=== PATIENT | female | born 1955 | race American Indian/Alaskan Native ===

== ENCOUNTER 2016-10-16 06:34 | Day surgery (SDC) | payer OTHER ==
[2016-10-16 07:35] LABS: Eosinophils % (Auto) 2.5 % (0.0-4.3); Hematocrit 36.7 % (30.3-42.9); Hemoglobin 12.5 gm/dl (10.1-14.3); Mean Corpuscular HGB Conc 34 % (30-34); Mean Corpuscular Hemoglobin 30 pg (28-32); Mean Corpuscular Volume 89 fl (79-97); Platelet Count 199 K/mm3 (140-440); Red Blood Count 4.14 M/mm3 (3.65-5.03); Red Cell Distribution Width 13.1 % (13.2-15.2); White Blood Count 3.8 K/mm3 (4.5-11.0)
[2016-10-16 07:45] LABS: INR 0.84 (0.87-1.13)
[2016-10-16 07:55] LABS: Anion Gap 14 mmol/L; Blood Urea Nitrogen 10 mg/dL (7-17); Calcium 8.2 mg/dL (8.4-10.2); Carbon Dioxide 27 mmol/L (22-30); Chloride 105.7 mmol/L (98-107); Glucose 91 mg/dL (65-100); Potassium 3.6 mmol/L (3.6-5.0); Sodium 143 mmol/L (137-145)
[2016-10-16] MEDS ORDERED: NACL 0.9% 500 ML 500 ML IV SCH (08:00)
[2016-10-16] MEDS ORDERED: ECOTRIN PO ONE (09:00)
[2016-10-16] MEDS ORDERED: XYLOCAINE 1% 20 mL ONE (10:12)
[2016-10-16] MEDS ORDERED: HEPARIN/NS 5000 UNIT/500ML(CATH LAB) 1,000 ML IR ONE (10:12)
[2016-10-16] MEDS ORDERED: SUBLIMAZE ONE (10:12)
[2016-10-16] MEDS ORDERED: VERSED ONE (10:12)
--- NOTE | 2016-10-16 11:30 | Discharge Summary ---
Short Stay Discharge Plan Activity: advance as tolerated Weight Bearing Status: Partial Weight Bearing Diet: low fat, low cholesterol, low salt Wound: keep clean and dry Special Instructions: no heavy lifting (3 days) Follow up with: HANH VELASQUEZ JR, MD [Primary Care Provider] - 7 Days BREEZY IBRAHIM MD [Staff Physician] - 7 Days
[2016-10-16] MEDS ORDERED: NACL 0.9% 1000 ML 1,000 ML IV SCH (12:00)
--- NOTE | 2016-10-16 14:14 | Cardiac Catherization Report ---
CARDIAC CATHETERIZATION REASON FOR PROCEDURE: Chest pain. PROCEDURE: The patient was prepped and draped in a sterile fashion after informed consent. Right femoral artery was entered using the Seldinger technique followed by placement of a 6-Malay sheath. Selective left and right coronary angiography was performed using #4 right and left Isha catheters. A pigtail catheter was used for left ventricle angiography. The catheters were removed, sheath removed, and hemostasis achieved using an Angio-Seal device. The patient was returned to the post-procedure unit in stable condition. There were no complications. FINDINGS: HEMODYNAMICS: Left ventricle end-diastolic pressure was 24, following coronary angiography. Ascending aortic pressure was 143/78. There was no significant pressure gradient on pullback across the aortic valve. CORONARY ANGIOGRAPHY: The left main coronary artery was angiographically normal. The left anterior descending artery and its diagonal branches contained mild luminal irregularities. There were mild luminal irregularities of the proximal and mid circumflex artery. The right coronary artery was a relatively small caliber, but dominant vessel. This vessel was angiographically normal. There was normal left ventricular systolic function, ejection fraction 60%. CONCLUSION: 1. Mild luminal irregularities as above, essentially angiographically normal coronary arteries. 2. Normal left ventricular systolic function, ejection fraction 60%. RECOMMENDATION: Risk factor modification and medical therapy. JOB# [id number] FRED/NTS
[2016-10-16 15:25] VITALS: BP 137/73
== END 2016-10-16 15:45 | disposition home or self-care (01) ==
LOC: CATHLABREC 06:34
PROVIDERS: ATTEND Internal Medicine Cardiovascular Disease
DX: R07.9 Chest pain, unspecified (principal); I10 Essential (primary) hypertension; K21.9 Gastro-esophageal reflux disease without esophagitis; Z79.82 Long term (current) use of aspirin; Z79.899 Other long term (current) drug therapy; Z88.5 Allergy status to narcotic agent; Z98.890 Other specified postprocedural states; Z82.49 Family history of ischemic heart disease and other diseases of the circulatory system
CPT/HCPCS: 36415; 80048; 85025; 85610; 93005; 93010; 93458; C1760; C1894; J1644; J2250; J3010; J7040; Q9967

== ENCOUNTER 2021-06-16 16:40 | Emergency (ER) | payer MEDICARE, OTHER ==
[2021-06-16] MEDS ORDERED: ASPIRIN 325 MG TAB PO ONE (17:01)
--- NOTE | 2021-06-16 17:06 | Emergency Department Report ---
ED Chest Pain HPI - General Stated Complaint: CHEST PAIN Time Seen by Provider: 06/16/21 16:50 Source: patient Mode of arrival: Stretcher Limitations: No Limitations - History of Present Illness Initial Comments: 66-year-old non-smoker with a past medical history of hypertension presents complaining of sudden onset of chest pressure while at rest 1 hour prior to arrival. Pain was a constant pressure that is moderate in intensity without aggravating or alleviating factors. Patient took her reflux medication during episode. She does not take nitroglycerin or aspirin at this time. Patient denies associated symptoms including pain radiation, nausea, vomiting, or diaphoresis. She is currently pain-free. She denies calf tenderness, leg edema, pleuritic chest pain. As per medical record review patient a cardiac cath here in October 2016 showed mild luminal irregularities with essentially normal coronary arteries. LV systolic function ejection fraction 60%. Patient states she has not had a cardiac cath since However she is scheduled for outpatient cardiac procedures in 2 weeks for reevaluation because she has not had a heart work-up in a while. She is unsure which cardiac tests she is scheduled for. Patient's PMD is Dr. 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 [facility] Cardiac risk factors include hypertension, mother had a pacemaker but no history is NV or stent placement - Related Data Home Medications Medication Instructions Recorded Confirmed Last Taken Aspirin EC [Halfprin EC] 81 mg PO QDAY 10/16/16 10/16/16 10/15/16 Biotin [Biotin 1,000 chew] 1,000 mcg PO DAILY 10/16/16 10/16/16 10/15/16 Bisoprolol/Hctz [Ziac 5-6.25] 1 each PO DAILY 10/16/16 10/16/16 10/15/16 Bupropion HCl [Wellbutrin XL] 300 mg PO QAM 10/16/16 10/16/16 10/15/16 Diclofenac Sodium 75 mg PO BID PRN 10/16/16 10/16/16 10/15/16 ISOSORBIDE MONOnitrate [Imdur ER] 30 mg PO DAILY 10/16/16 10/16/16 10/15/16 Metoprolol Xl [Metoprolol 25 mg PO QDAY 10/16/16 10/16/16 10/15/16 SUCCINATE ER TAB] Pantoprazole [Protonix TAB] 40 mg PO QDAY 10/16/16 10/16/16 10/15/16 hydrOXYzine HCL [Hydroxyzine HCl] 25 mg PO BID PRN 10/16/16 10/16/16 10/15/16 Allergies Allergy/AdvReac Type Severity Reaction Status Date / Time propoxyphene HCl AdvReac Nausea Verified 06/16/21 17:08 [From [facility]von] Heart Score - HEART Score History: Slightly suspicious EKG: Normal Age: 45-65 Risk factors: 1-2 risk factors Troponin: < normal limit HEART Score: 2 - EKG Read Time Time EKG Completed: 16:46 EKG Read Time: 16:49 ED Review of Systems ROS: Stated complaint: CHEST PAIN Other details as noted in HPI Comment: All other systems reviewed and negative ED Past Medical Hx - Past Medical History Hx Hypertension: Yes Hx GERD: Yes Hx Asthma: Yes - Social History Smoking Status: Never Smoker - Medications Home Medications: Home Medications Medication Instructions Recorded Confirmed Last Taken Type Aspirin EC [Halfprin EC] 81 mg PO QDAY 10/16/16 10/16/16 10/15/16 History Biotin [Biotin 1,000 chew] 1,000 mcg PO DAILY 10/16/16 10/16/16 10/15/16 History Bisoprolol/Hctz [Ziac 5-6.25] 1 each PO DAILY 10/16/16 10/16/16 10/15/16 History Bupropion HCl [Wellbutrin XL] 300 mg PO QAM 10/16/16 10/16/16 10/15/16 History Diclofenac Sodium 75 mg PO BID PRN 10/16/16 10/16/16 10/15/16 History ISOSORBIDE MONOnitrate [Imdur ER] 30 mg PO DAILY 10/16/16 10/16/16 10/15/16 His tory Metoprolol Xl [Metoprolol 25 mg PO QDAY 10/16/16 10/16/16 10/15/16 History SUCCINATE ER TAB] Pantoprazole [Protonix TAB] 40 mg PO QDAY 10/16/16 10/16/16 10/15/16 History hydrOXYzine HCL [Hydroxyzine HCl] 25 mg PO BID PRN 10/16/16 10/16/16 10/15/16 History ED Physical Exam - Other Other exam information: General: No acute distress Head: Atraumatic Eyes: normal appearance Neck: Normal appearance, no midline tenderness Chest: Clear to auscultation bilaterally, chest wall nontender CV: Regular rate and rhythm Abdomen: Soft, normal bowel sounds, nontender, nondistended, no rebound or guarding Back: Normal inspection Extremity: Normal inspection, full range of motion, no calf tenderness or leg edema Neuro: Alert O x 3, no facial asymmetry, speech clear, no gross motor sensory deficit Psych: Appropriate behavior ED Course Vital Signs 06/16/21 06/16/21 06/16/21 17:01 17:05 17:45 Temperature 98.6 F Pulse Rate 63 61 Blood Pressure 164/85 141/78 [Left] O2 Sat by Pulse 99 98 98 Oximetry 06/16/21 19:02 Temperature Pulse Rate 67 Blood Pressure 131/90 [Left] O2 Sat by Pulse 99 Oximetry - Consultations Consultation #1: 06/16/21 19:[address] Campo on-call furnace combustion tester for [facility] heart. He was able to look at patient's medical record and states that she had a negative stress test May 2019 and is scheduled for a repeat stress test July 13 this year. Since patient has been pain-free, negative cardiac enzyme, and unchanged EKG she may be discharged if her second enzyme is negative. Patient will be updated TAMMY score - Tammy Score Age > 65: (0) No Aspirin use within the Past 7 Days: (0) No 3 or more CAD Risk Factors: (0) No 2 or more Angina events in past 24 hrs: (0) No Known CAD with more than 50% Stenosis: (0) No Elevated Cardiac Markers: (0) No ST Deviation Greater than 0.5mm: (0) No TAMMY Score: 0 ED Medical Decision Making - Lab Data Result diagrams: 06/16/21 17:44 06/16/21 17:44 Lab Results 06/16/21 06/16/21 06/16/21 Range/Units 17:44 17:44 17:44 WBC 4.6 (4.5-11.0) K/mm3 RBC 4.45 (3.65-5.03) M/mm3 Hgb 13.3 (10.1-14.3) gm/dl Hct 39.6 (30.3-42.9) % MCV 89 (79-97) fl MCH 30 (28-32) pg MCHC 34 (30-34) % RDW 14.0 (13.2-15.2) % Plt Count 224 (140-440) K/mm3 Lymph % (Auto) 42.1 H (13.4-35.0) % [place] % (Auto) 8.0 H (0.0-7.3) % Eos % (Auto) 2.4 (0.0-4.3) % Baso % (Auto) 0.7 (0.0-1.8) % Lymph # (Auto) 1.9 (1.2-5.4) K/mm3 [place] # (Auto) 0.4 (0.0-0.8) K/mm3 Eos # (Auto) 0.1 (0.0-0.4) K/mm3 Baso # (Auto) 0.0 (0.0-0.1) K/mm3 Seg Neutrophils % 46.8 (40.0-70.0) % Seg Neutrophils # 2.1 (1.8-7.7) K/mm3 PT 12.6 (12.2-14.9) Sec. INR 0.86 L (0.87-1.13) APTT 27.7 (24.2-36.6) Sec. Sodium 139 (137-145) mmol/L Potassium 4.0 (3.6-5.0) mmol/L Chloride 103.8 (98-107) mmol/L Carbon Dioxide 25 (22-30) mmol/L Anion Gap 14 mmol/L BUN 14 (7-17) mg/dL Creatinine 0.8 (0.6-1.2) mg/dL Estimated GFR > 60 ml/min BUN/Creatinine Ratio 18 % Glucose 96 (65-100) mg/dL Calcium 8.8 (8.4-10.2) mg/dL Total Bilirubin 0.20 (0.1-1.2) mg/dL AST 24 (5-40) units/L ALT 30 (7-56) units/L Alkaline Phosphatase 79 (35-129) units/L Troponin T < 0.010 (0.00-0.029) ng/mL Total Protein 7.0 (6.3-8.2) g/dL Albumin 4.4 (3.9-5) g/dL Albumin/Globulin Ratio 1.7 % 06/16/21 Range/Units 19:49 WBC (4.5-11.0) K/mm3 RBC (3.65-5.03) M/mm3 Hgb (10.1-14.3) gm/dl Hct (30.3-42.9) % MCV (79-97) fl MCH (28-32) pg MCHC (30-34) % RDW (13.2-15.2) % Plt Count (140-440) K/mm3 Lymph % (Auto) (13.4-35.0) % [place] % (Auto) (0.0-7.3) % Eos % (Auto) (0.0-4.3) % Baso % (Auto) (0.0-1.8) % Lymph # (Auto) (1.2-5.4) K/mm3 [place] # (Auto) (0.0-0.8) K/mm3 Eos # (Auto) (0.0-0.4) K/mm3 Baso # (Auto) (0.0-0.1) K/mm3 Seg Neutrophils % (40.0-70.0) % Seg Neutrophils # (1.8-7.7) K/mm3 PT (12.2-14.9) Sec. INR (0.87-1.13) APTT (24.2-36.6) Sec. Sodium (137-145) mmol/L Potassium (3.6-5.0) mmol/L Chloride (98-107) mmol/L Carbon Dioxide (22-30) mmol/L Anion Gap mmol/L BUN (7-17) mg/dL Creatinine (0.6-1.2) mg/dL Estimated GFR ml/min BUN/Creatinine Ratio % Glucose (65-100) mg/dL Calcium (8.4-10.2) mg/dL Total Bilirubin (0.1-1.2) mg/dL AST (5-40) units/L ALT (7-56) units/L Alkaline Phosphatase (35-129) units/L Troponin T < 0.010 (0.00-0.029) ng/mL Total Protein (6.3-8.2) g/dL Albumin (3.9-5) g/dL Albumin/Globulin Ratio % - EKG Data -: EKG Interpreted by Me (Possible left atrial enlargement) EKG shows normal: sinus rhythm, ST-T waves (Non-STEMI) Rate: normal - EKG Data When compared to previous EKG there are: no significant change (Compared to 2017 EKG) - Radiology Data Radiology results: report reviewed CHEST 1 VIEW INDICATION: Chest Pain. COMPARISON: 06/09/2010 FINDINGS: SUPPORT DEVICES: None. HEART: Within normal limits. LUNGS/PLEURA: No acute air space or interstitial disease. ADDITIONAL FINDINGS: None. IMPRESSION: 1. No acute findings. Critical Care Time: No Critical care attestation.: If time is entered above; I have spent that time in minutes in the direct care of this critically ill patient, excluding procedure time. ED Disposition Clinical Impression: Atypical chest pain, History of gastroesophageal reflux (GERD) Disposition: HOME / SELF CARE / HOMELESS Is pt being admited?: No Does the pt Need Aspirin: No Condition: Stable Instructions: Nonspecific Chest Pain, Adult Additional Instructions: Continue your medications as prescribed. Follow-up with your primary care doctor for reevaluation the next 3 to 5 days. Follow-up with your furnace combustion tester as scheduled. Follow-up with GI doctor provided with a GI doctor of your choice for further evaluation of your reflux symptoms. Return if symptoms worsen as indicated by your discharge instructions. Referrals: [facility] [Provider Group] - 7-10 days HANH VU JR, MD [Staff Physician] - 3-5 Days BONNIE THOMSON MD [Staff Physician] - 7-10 days (GI doctor) Time of Disposition: 20:35
--- NOTE | 2021-06-16 17:20 | XRay Report ---
CHEST 1 VIEW INDICATION: Chest Pain. COMPARISON: 06/09/2010 FINDINGS: SUPPORT DEVICES: None. HEART: Within normal limits. LUNGS/PLEURA: No acute air space or interstitial disease. ADDITIONAL FINDINGS: None. IMPRESSION: 1. No acute findings. Signer Name: Yaya Vela MD Signed: 06/16/2021 5:15 PM Workstation Name: [id number]
[2021-06-16 17:55] LABS: Basophils % (Auto) 0.7 % (0.0-1.8); Eosinophils # (Auto) 0.1 K/mm3 (0.0-0.4); Eosinophils % (Auto) 2.4 % (0.0-4.3); Hematocrit 39.6 % (30.3-42.9); Hemoglobin 13.3 gm/dl (10.1-14.3); Lymphocytes # (Auto) 1.9 K/mm3 (1.2-5.4); Lymphocytes % (Auto) 42.1 % (13.4-35.0); Mean Corpuscular HGB Conc 34 % (30-34); Mean Corpuscular Volume 89 fl (79-97); Monocytes # (Auto) 0.4 K/mm3 (0.0-0.8); Platelet Count 224 K/mm3 (140-440); Red Blood Count 4.45 M/mm3 (3.65-5.03)
[2021-06-16 18:05] LABS: INR 0.86 (0.87-1.13); Partial Thromboplastin Time 27.7 Sec. (24.2-36.6)
[2021-06-16 18:10] LABS: Alanine Aminotransferase 30 units/L (7-56); Albumin 4.4 g/dL (3.9-5); BUN/Creatinine Ratio 18; Blood Urea Nitrogen 14 mg/dL (7-17); Calcium 8.8 mg/dL (8.4-10.2); Hemolysis Index 30
[2021-06-16 19:03] VITALS: BP 131/90
--- NOTE | 2021-06-20 13:49 | Electrocardiograph Report ---
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
== END 2021-06-16 21:09 | disposition home or self-care (01) ==
LOC: ED 16:40
DX: R07.89 Other chest pain (principal); K21.9 Gastro-esophageal reflux disease without esophagitis; I10 Essential (primary) hypertension; J45.909 Unspecified asthma, uncomplicated; Z79.899 Other long term (current) drug therapy
CPT/HCPCS: 36415; 71045; 80053; 84484; 85025; 85610; 85730; 93005; 99284